=== PATIENT | female | born 1985 | race Caucasian/White ===

== ENCOUNTER 2018-04-26 22:20 | Emergency (ER) | payer MEDICAID, OTHER ==
[~2018-04-26] VITALS: Wt 79.9 kg
[2018-04-27 03:20] VITALS: BP 118/78; PULSE 80; RESP 19
--- NOTE | 2018-04-27 04:22 | ERD ---
ER Documentation Chief Complaint Chief Complaint bib self cc: vag bleed x 6 weeks ,started today HPI 32-year-old female last menstrual period March 28 during that she is 5 weeks presenting with vaginal bleeding for the past hour. Patient admits to having mild crampy pain. She denies nausea vomiting diarrhea. Denies any medications. ROS All systems reviewed and are negative except as per history of present illness. Allergies Allergies: Coded Allergies: No Known Allergy (Unverified , 04/26/18) PMhx/Soc Medical and Surgical Hx: pt denies Medical Hx, pt denies Surgical Hx Hx Alcohol Use: No Hx Substance Use: No Hx Tobacco Use: No Smoking Status: Never smoker Physical Exam Vitals Vital Signs Date Temp Pulse Resp B/P (MAP) Pulse Ox O2 O2 Flow FiO2 Time Delivery Rate 04/27/18 98.3 80 19 118/78 100 Room Air 03:20 (91) 04/26/18 97.0 76 19 120/64 100 22:28 (82) Physical Exam Const: No acute distress Head: Atraumatic Eyes: Normal Conjunctiva ENT: Normal External Ears, Nose and Mouth. Neck: Full range of motion. No meningismus. Resp: Clear to auscultation bilaterally Cardio: Regular rate and rhythm, no murmurs Abd: Soft, non tender, non distended. Normal bowel sounds Skin: No petechiae or rashes Back: No midline or flank tenderness Ext: No cyanosis, or edema Neur: Awake and alert Psych: Normal Mood and Affect Result Diagram: 04/27/18 0104 Results 24 hrs Laboratory Tests Test 04/27/18 01:04 04/27/18 01:05 White Blood Count 11.4 10^3/ul Red Blood Count 4.36 10^6/ul Hemoglobin 12.8 g/dl Hematocrit 39.2 % Mean Corpuscular Volume 89.9 fl Mean Corpuscular Hemoglobin 29.4 pg Mean Corpuscular Hemoglobin Concent 32.7 g/dl Red Cell Distribution Width 12.6 % Platelet Count 265 10^3/UL Mean Platelet Volume 10.6 fl Immature Granulocytes % 0.400 % Neutrophils % 71.7 % Lymphocytes % 21.2 % Monocytes % 5.5 % Eosinophils % 0.8 % Basophils % 0.4 % Nucleated Red Blood Cells % 0.0 /100WBC Immature Granulocytes # 0.050 10^3/ul Neutrophils # 8.2 10^3/ul Lymphocytes # 2.4 10^3/ul Monocytes # 0.6 10^3/ul Eosinophils # 0.1 10^3/ul Basophils # 0.1 10^3/ul Nucleated Red Blood Cells # 0.0 10^3/ul Beta HCG, Quantitative 3016.9 mIU/ml Urine Color YELLOW Urine Clarity SLIGHTLY CLOUDY Urine pH 5.0 Urine Specific [place] 1.020 Urine Ketones 1+ mg/dL Urine Nitrite NEGATIVE mg/dL Urine Bilirubin NEGATIVE mg/dL Urine Urobilinogen NEGATIVE mg/dL Urine Leukocyte Esterase NEGATIVE [place]/ul Urine Microscopic RBC 43 /HPF Urine Microscopic WBC 3 /HPF Urine Squamous Epithelial Cells FEW /HPF Urine Bacteria FEW /HPF Urine Mucus MANY /HPF Urine Hemoglobin 3+ mg/dL Urine Glucose NEGATIVE mg/dL Urine Total Protein NEGATIVE mg/dl Procedures/MDM 32-year-old female presenting with vaginal bleeding for the past hour. Differentials include but not limited to miscarriage, ectopic versus other. In the ED lab work was obtained, patient's beta-hCG level was 3016, and ultrasound was done which showed that There is no intrauterine gestational sac identified. There are no suspicious adnexal lesions seen. The left ovary is not identified. The right ovary measures 3.1 x 1.8 x 2.3 cm. Flow is demonstrated to the right ovary. Patiently likely had a miscarriage however I have discussed with her to return in 48 hours for reevaluation. Discussed return sooner if heavy bleeding returns or worsens her symptoms. She understands and agrees with plan Departure Diagnosis: Primary Impression: Vaginal bleeding Condition: Stable Patient Instructions: Vaginal Bleed in , Possible Miscarriage (Threatened ) Referrals: DOCTOR,NOT ON STAFF (PCP) Additional Instructions: Regrese a estas instalaciones dentro de [facility] para un examen de seguimiento.Regrese antes si gonzales condicin se empeora. [place] toda la medicina lorenzo y louisa se le indic. Regrese a estas instalaciones si no se mejora louisa esperbamos o louisa le dijimos. TYE HYDE PA-C Apr 27, 2018 04:22
== END 2018-04-27 03:21 | disposition home or self-care (01) ==
LOC: FTE 22:20
DX: O20.9 Hemorrhage in early pregnancy, unspecified (principal); Z3A.01 Less than 8 weeks gestation of pregnancy
CPT/HCPCS: 36415; 76801; 76817; 81001; 84702; 85025; 86900; 86901; Z7502